=== PATIENT | male | born 1965 | race Caucasian/White ===

== ENCOUNTER 2019-12-14 20:20 | Emergency (ER) | payer BC, SELFPAY ==
[2019-12-14 20:32] VITALS: BP 170/90; PULSE 82; RESP 15; TEMP 36.8; O2SAT 98; BMI 22.4
--- NOTE | 2019-12-14 20:45 | PC.NURSE ---
Reports laceration/deep puncture to base of left thumb at 1700 with a Dez Knife
--- NOTE | 2019-12-14 22:44 | DI.RAD.S_ITS ---
PROCEDURE: XR HAND LT MIN 3V INDICATIONS: cut hand with knife, TECHNIQUE: 3 views of the hand(s) acquired. COMPARISON: None. FINDINGS: Bones: No fractures or dislocations. Carpal bones are normally aligned. No suspicious bony lesions. Age-appropriate bony degenerative changes are seen. Soft tissues: No suspicious soft tissue calcifications. No radiopaque foreign bodies are seen. IMPRESSION: No radiopaque foreign bodies or acute bony abnormality can be seen. If there is strong suspicion for developing osteomyelitis, please consider a dedicated MRI without and with contrast for further evaluation (assuming that there is no contraindication to MRI). Dictated by: Enzo Burris M.D. on 12/14/2019 at 22:04 Approved by: Enzo Burris M.D. on 12/14/2019 at 22:04
[2019-12-14 22:59] VITALS: BP 170/97; PULSE 86; O2SAT 98
[2019-12-14 23:00] VITALS: PULSE 82; O2SAT 96
[2019-12-14 23:30] VITALS: PULSE 84; O2SAT 98
--- NOTE | 2019-12-14 23:45 | ED.WOUNDLAC ---
HPI - Wound/Laceration General Chief Complaint: Wound/Laceration Stated Complaint: wound from knife, left hand Time Seen by Provider: 12/14/19 23:14 Source: patient Mode of arrival: Ambulatory Limitations: no limitations History of Present Illness HPI narrative: Patient cutting wood with a knife. Accidentally cut his left palm. Base of the thenar eminence. 1.5 cm linear. No neuro complaints. Bleeding is controlled. Tetanus up-to-date. Related Data Previous Rx's Medication Instructions Recorded cephalexin 500 mg PO TID #15 cap 12/14/19 Allergies Allergy/AdvReac Type Severity Reaction Status Date / Time No Known Drug Allergies Allergy Verified 12/14/19 20:32 Review of Systems Review of Systems Narrative: GENERAL: Denies chills, fatigue, malaise, fever, sweats. HEENT: Denies sinus pain, ear pain, sore throat, difficulty swallowing, dizziness. RESPIRATORY: Denies dyspnea, cough, wheezing, hemoptysis, sputum. CARDIOVASCULAR: Denies chest pain, palpitations, orthopnea, edema, GASTROINTESTINAL: Denies nausea, vomiting, abdominal pain, diarrhea, constipation, melena. : Denies dysuria, frequency, incontinence, hematuria, urinary retention. MUSCULOSKELETAL: denies weakness, joint pain, or bony pain SKIN: Denies rash, skin lesions NEUROLOGIC: Denies weakness, headache, numbness, change in speech, confusion, seizures, incoordination. PSYCHIATRIC: No concerning psychosocial issues. ROS Unobtainable: All systems reviewed & are unremarkable except as noted in HPI and below Patient History Social History Smoking Status: Never smoker Smoking Status: Never smoker alcohol intake frequency: 0-2 drinks per day Substance Use Type: does not use Exam Narrative Exam Narrative: GENERAL: patient appears stated age. Well-nourished, well-developed patient, in no distress, not toxic HEAD: Atraumatic. Normocephalic. EXTREMITIES: No edema or joint tenderness. Examination left hand. Hand is warm soft and pink. Strong brim molder. Light touch intact to fingertips and thumb. There is a 1.5 cm superficial laceration at the base of the thenar eminence. Patient is able, again able to bring his thumb completely across the palm and touch his palm with the tip of his thumb. Able to make the okay sign firmly with thumb and index finger and able to maintain position with resistance. Bloodless field. Based visualized. No tendon injury or bone or muscle injury seen. NEURO: AOx4. SKIN: No rash or erythema of visible areas PSYCH: Not anxious, is cooperative Initial Vital Signs Initial Vital Signs: Vital Signs Temperature 98.3 F 12/14/19 20:32 Pulse Rate 82 12/14/19 20:32 Respiratory Rate 15 12/14/19 20:32 Blood Pressure 170/90 H 12/14/19 20:32 Pulse Oximetry 98 12/14/19 20:32 Procedures Laceration Repair Left hand: Site: hand Side (If applicable): left Description: linear Depth: simple, single layer Local Anesthetic: lidocaine 1% Amount of anesthesia used (mL): 2 Pre-repair: wound explored, irrigated extensively and deep structures intact Skin layer closed with: nylon Size (cm): 5-0 Number of sutures: 3 Technique: simple, interrupted Course Orders Ordered: ED Orders 12/14/19 22:44 XR hand LT min 3V Stat Discontinued Medications Bacitracin (Bacitracin) 1 applic TOP NOW ONE Stop: 12/14/19 23:50 Last Admin: 12/14/19 23:54 Dose: 1 applic Documented by: RAGHAVENDRA Cephalexin HCl (Keflex) 500 mg PO NOW ONE Stop: 12/14/19 23:46 Last Admin: 12/14/19 23:54 Dose: 500 mg Documented by: RAGHAVENDRA Vital Signs Vital signs: Vital Signs - 8 hr 12/14/19 20:32 12/14/19 22:59 12/14/19 23:00 Temperature 98.3 F Pulse Rate 82 86 82 Respiratory Rate 15 Blood Pressure 170/90 H 170/97 H Pulse Oximetry 98 98 96 12/14/19 23:30 12/15/19 00:02 12/15/19 00:03 Temperature Pulse Rate 84 80 80 Respiratory Rate Blood Pressure 137/71 Pulse Oximetry 98 96 97 MDM - Wound/Laceration Differential Diagnosis Differential diagnosis: Likely laceration Imaging Data Extremity x-ray #1: Radiologist's Impression: [address] [address] XRay Report Signed Patient: Johny Griggs RMR#: [id number] : 1965Acct:[id number] Age/Sex: 54 / MDate of Service: 12/14/19 Loc: ED Accession Number: [id number] Procedure: XR hand LT min 3V Ordering Provider: Rikki Lea MD PROCEDURE: XR HAND LT MIN 3V INDICATIONS: cut hand with knife, TECHNIQUE: 3 views of the hand(s) acquired. COMPARISON: None. FINDINGS: Bones: No fractures or dislocations. Carpal bones are normally aligned. No suspicious bony lesions. Age-appropriate bony degenerative changes are seen. Soft tissues: No suspicious soft tissue calcifications. No radiopaque foreign bodies are seen. IMPRESSION: No radiopaque foreign bodies or acute bony abnormality can be seen. If there is strong suspicion for developing osteomyelitis, please consider a dedicated MRI without and with contrast for further evaluation (assuming that there is no contraindication to MRI). Dictated by: Enzo Burris M.D. on 12/14/2019 at 22:04 Approved by: Enzo Burris M.D. on 12/14/2019 at 22:04 [facility] Narrative Medical decision making narrative: Appropriate for discharge home. At this time I do not see any nerve injury for motor movements for the left thumb. Appropriate for discharge home. Discharge Plan Departure Patient Disposition: Home Clinical Impression: Laceration of left palm Qualifiers: Encounter type: initial encounter Qualified Code(s): S61.412A - Laceration without foreign body of left hand, initial encounter Discharge Date/Time: 12/15/19 00:05 Instructions: How to Care for a Laceration After Repair, DI for Laceration Repair Activity Restrictions/Additional Instructions: Change dressing twice a day with warm soap and water and then apply thin layer of topical antibiotic. See family doctor or clinic in 8-10 days for removal of 3 stitches. May shower but no submersion of the hand under water. Return if worse or if any fever or discharge from the wound or any redness around the wound. Return if any bleeding. Prescriptions: New cephalexin 500 mg capsule 500 mg PO TID Qty: 15 RF: 0
[2019-12-14] MEDS: BACITRACIN OINT 0.9 GM PCKT 1 APPLIC TOP (23:54)
[2019-12-14] MEDS: LIDOCAINE 1% (PF) 2 ML (23:54)
[2019-12-14] MEDS: cephALEXin 250 MG CAPSULE 500 MG PO (23:54)
--- NOTE | 2019-12-15 00:01 | PC.NURSE ---
Pt washed hands with soap and water. Placed bacitracin, non- stick gauze wrapped by kerlix.
[2019-12-15 00:02] VITALS: PULSE 80; O2SAT 96
[2019-12-15 00:03] VITALS: BP 137/71; PULSE 80; O2SAT 97
== END 2019-12-15 00:05 | disposition home or self-care (01) ==
PROVIDERS: Emergency Provider Emergency Medicine
DX: S61.412A Laceration without foreign body of left hand, initial encounter (principal); W26.0XXA Contact with knife, initial encounter
CPT/HCPCS: 12001; 73130; 99283; 99284